=== PATIENT | male | born 2000 | race Two or more races ===

== ENCOUNTER 2024-10-14 10:46 | Emergency (ER) | payer SELFPAY ==
[2024-10-14 10:50] VITALS: BP 135/96; PULSE 102; TEMP 37; O2SAT 98; BMI 25.1
--- NOTE | 2024-10-14 11:05 | CT_ITS ---
The [address] [address] Patient Name: OLYA AGUILERA MRN: [id number] date: 2000 Sex: M Assigned Patient Location: ER Current Patient Location: Accession/Order Number: [id number] Exam Date: 10/14/2024 11:20 Report Date: 10/14/2024 12:06 At the request of: IFEOMA FERRO Procedure: CT abdomen pelvis wo con EXAM: CT abdomen pelvis wo con INDICATION: Hematuria, bilateral back pain. COMPARISON: None. TECHNIQUE: Multiple contiguous axial CT images of the abdomen and pelvis were obtained without the use of intravenous contrast. Sagittal and coronal reconstructions were performed. Dose reduction techniques were achieved by using: automated exposure control and/or adjustment of mA and /or kV according to patient size and/or use of iterative reconstruction technique. FINDINGS: Evaluation of visceral organs limited by noncontrast technique. LOWER CHEST: No significant abnormality. ABDOMEN AND PELVIS: LIVER: Unremarkable. BILIARY SYSTEM: Normal gallbladder. No biliary ductal dilatation. PANCREAS: Unremarkable. SPLEEN: Unremarkable. ADRENAL GLANDS: Normal. URINARY SYSTEM: Punctate nonobstructing 1 to 2 mm right renal stone. Unremarkable left kidney. No hydronephrosis or urolithiasis. Mild circumferential bladder wall thickening which is underdistended. REPRODUCTIVE: Unremarkable. GASTROINTESTINAL TRACT: Normal caliber bowel. No bowel wall thickening or inflammation. Moderate to large colorectal fecal burden. Normal appendix. VESSELS: Nonaneurysmal abdominal aorta. LYMPH NODES: No adenopathy. PERITONEUM: No ascites or pneumoperitoneum. MUSCULOSKELETAL: SOFT TISSUES: Unremarkable soft tissues. BONES: No acute osseous abnormality or suspicious osseous lesion. NUÑEZ: (series:image) CT/CT abdomen pelvis wo con IMPRESSION: 1. Mild circumferential wall thickening of the bladder which may be due to underdistention or cystitis. No other acute process identified. 2. Punctate right nephrolithiasis. Electronically authenticated by: MONICA CORONA Date: 10/14/2024 12:06
--- NOTE | 2024-10-14 11:05 | ED.GENADUL1 ---
HPI HPI - General Adult General Chief complaint: Upper Respiratory Infection Stated complaint: SINUSE ISSUES AND SOME BACK PAIN Time Seen by Provider: 10/14/24 10:48 Source: patient and friend Mode of arrival: walk-in Limitations: no limitations History of Present Illness HPI narrative: 24-year-old male presents to the emergency department for 2 issues. First he has had some upper respiratory infection symptoms for about 2 weeks. He finished a course of Keflex but still has a sore throat and some congestion. Second he was found to have hematuria at the urgent care center where they prescribed him the Keflex and he has had some bilateral lower back pain. No injury no history of kidney stones. Related Data Home Medications ?Medication ?Instructions ?Recorded ?Confirmed No Known Home Medications 10/14/24 10/14/24 Allergies Allergy/AdvReac Type Severity Reaction Status Date / Time No Known Drug Allergies Allergy Verified 10/14/24 10:54 Opioid HPI Opioid Management Most Recent Opioid Data: Last Pain Scale 6 10/14/24 11:01 10/14/24 Review of Systems ROS Narrative A ten point review of systems is negative except as noted above. PFSH PFSH Social History Little interest or pleasure in doing things: not at all Feeling down, depressed, or hopeless: not at all Exam Narrative Exam Narrative: Nurses note and vital signs reviewed and patient is not hypoxic. General: The patient appears well and in no apparent distress. Patient is resting comfortably on cart. Skin: Warm, dry, no pallor noted. There is no rash noted. Head: Normocephalic, atraumatic Eye: Normal conjunctiva, no drainage Ears, Nose, Mouth, and Throat: oral mucosa is moist. Nares patent. Uvula midline. No exudate. Cardiovascular: Regular Rate and Rhythm Respiratory: Patient is in no distress, no accessory muscle use, lungs are clear to auscultation, no wheezing, rales or rhonchi Back: non-tender, no CVA tenderness bilaterally to percussion. GI: Soft and nontender Musculoskeletal: The patient has no evidence of calf tenderness, no pitting edema, symmetrical pulses noted bilaterally Neurological: A&O, normal speech Psychiatric: Cooperative Constitutional Vital Signs, click to edit/add: Last Vital Signs Temp 98.6 F 10/14/24 10:50 Pulse 102 H 10/14/24 10:50 Resp 18 10/14/24 10:50 BP 135/96 H 10/14/24 10:50 Pulse Ox 98 10/14/24 10:50 O2 Del Method Room Air 10/14/24 10:50 Course Vital Signs Vital signs: Vital Signs Temperature 98.6 F 10/14/24 10:50 Pulse Rate 102 H 10/14/24 10:50 Respiratory Rate 18 10/14/24 10:50 Blood Pressure 135/96 H 10/14/24 10:50 Pulse Oximetry 98 10/14/24 10:50 Oxygen Delivery Method Room Air 10/14/24 10:50 Temperature 98.6 F 10/14/24 10:50 Pulse Rate 102 H 10/14/24 10:50 Respiratory Rate 18 10/14/24 10:50 Blood Pressure 135/96 H 10/14/24 10:50 Pulse Oximetry 98 10/14/24 10:50 Oxygen Delivery Method Room Air 10/14/24 10:50 Medical Decision Making MDM Narrative Medical decision making narrative: Strep test is positive. WBC is quite elevated, cause uncertain. He has not had any exogenous steroids. He has no evidence of peritonsillar abscess or retropharyngeal abscess. All other testing is negative. He pays for prescriptions [id number]-[id number] and is prescribed clindamycin, he has recently finished Keflex. There is no evidence of hematuria and other than a punctate stone no abnormalities on his CT scan. Treatment diagnosis and follow-up were discussed thoroughly. Differential Diagnosis Differential Diagnosis: UTI, hematuria, kidney stone, strep throat, COVID, influenza Lab Data Lab results reviewed: Yes I reviewed the patient's lab results Labs: Lab Results 10/14/24 Range/Units 10:56 WBC 26.9 H (4.0-11.0) 10^3/uL RBC 4.85 (4.70-6.10) 10^6/uL Hgb 14.9 (14.0-18.0) g/dL Hct 44.3 (42.0-54.0) % MCV 91.3 (80.0-94.0) fL MCH 30.7 (25.9-34.0) pg MCHC 33.6 (29.9-35.2) g/dL RDW 13.0 (11.0-15.0) % Plt Count 274 (150-450) 10^3/uL MPV 9.6 (9.5-13.5) fL Seg Neuts % (Manual) 83.0 H (43.0-75.0) Band Neutrophils % 3.0 (0-5) % Lymphocytes % (Manual) 6.0 L (20.5-60.0) % Atypical Lymphs % (Man) 2.0 % Monocytes % (Manual) 6.0 (1.7-12.0) % Eosinophils % (Manual) 0.0 L (0.9-7.0) % Basophils % (Manual) 0.0 L (0.2-2.0) % Neutrophils # (Manual) 22.32 H (1.4-6.5) 10^3/uL Band Neutrophils # 0.8 H (0.0-0.3) 10^3/uL Lymphocytes # (Manual) 1.61 (1.20-3.80) 10^3/uL Abs Atypical Lymphs Man 0.53 Monocytes # (Manual) 1.61 H (0.30-0.80) 10^3/uL Eosinophils # (Manual) 0.00 (0.00-0.70) 10^3/uL Basophils # (Manual) 0.00 (0.00-0.10) 10^3/uL Sodium 138 (136-145) mmol/L Potassium 4.0 (3.5-5.1) mmol/L Chloride 99 (98-107) mmol/L Carbon Dioxide 31.3 (21.0-32.0) mmol/L Anion Gap 11.7 BUN 7.0 (7.0-18.0) mg/dL Creatinine 0.94 (0.70-1.30) mg/dL Est GFR ( Amer) >60 (>=60 mL/min/1.73m^2) Est GFR (Non-Af Amer) >60 (>=60 mL/min/1.73m^2) BUN/Creatinine Ratio 7.4 Glucose 125 H (74-106) mg/dL Calcium 8.7 (8.5-10.1) mg/dL Urine Color Yellow (YELLOW) Urine Clarity Clear (CLEAR) Urine pH 8.0 (5.0-9.0) Ur Specific [place] 1.015 (1.005-1.025) Urine Protein Negative (NEG/TRACE) mg/dL Urine Glucose (UA) Negative (NEGATIVE) mg/dL Urine Ketones Trace A (NEGATIVE) mg/dL Urine Occult Blood Negative (NEGATIVE) Urine Nitrite Negative (NEGATIVE) Urine Bilirubin Negative (NEGATIVE) Urine Urobilinogen 0.2 (0.2-1.0) EU/dL Ur Leukocyte Esterase Negative (NEGATIVE) Urine RBC None seen (0-2) #/HPF Urine WBC None seen (NONE SEEN) #/HPF Ur Squamous Epith Cells Few A (NONE/RARE) #/LPF Urine Bacteria None seen (NONE SEEN) #/HPF Urine Mucus Small A (NONE SEEN) Influenza Type A Ag Negative Influenza Type B Ag Negative SARS-CoV-2 Ag (CV2AG) Negative (NEGATIVE) Streptococcus Screen Positive A Imaging Data CT scan - abdomen: Radiologist's impression: ITS Impressions Abdomen/Pelvis CT 10/14/24 11:05 IMPRESSION: 1. Mild circumferential wall thickening of the bladder which may be due to underdistention or cystitis. No other acute process identified. 2. Punctate right nephrolithiasis. Electronically authenticated by: MONICA CORONA Date: 10/14/2024 12:06 Discharge Plan Discharge Chief Complaint: Upper Respiratory Infection Clinical Impression: Strep throat, Leukocytosis Patient Disposition: Home, Self-Care Time of Disposition Decision: 12:53 Condition: Good Prescriptions / Home Meds: No Action No Known Home Medications Print Language: Serbian Instructions: Strep Throat (ED), Leukocytosis (ED) Additional Instructions: Prescription for clindamycin was phoned in for you. Go to your pharmacy and pick it up and start it today. Referrals: Physician,Non-Staff, MD [Primary Care Provider] - 1 week
[2024-10-14 11:11] LABS: Bilirubin Urine NEGATIVE (NEGATIVE); Blood Urine NEGATIVE (NEGATIVE); Clarity Urine CLEAR (CLEAR); Color Urine YELLOW (YELLOW); Glucose Urine UA NEGATIVE (NEGATIVE); Ketones Urine TRACE mg/dL (NEGATIVE); Leukocyte Esterase Urine NEGATIVE (NEGATIVE); Nitrite Urine NEGATIVE (NEGATIVE); Protein Urine NEGATIVE (NEG/TRACE); Specific Gravity Urine 1.015 (1.005-1.025); Urobilinogen Urine 0.2 EU/dL (0.2-1.0)
[2024-10-14 11:26] LABS: Influenza Virus A Antigen Negative; Influenza Virus B Antigen Negative; Internal Control Within Normal Limits; SARS-CoV-2 Ag NEGATIVE (NEGATIVE)
[2024-10-14 11:34] LABS: Bacteria Urine NONE SEEN #/HPF (NONE SEEN); Hematocrit 44.3 % (42.0-54.0); Hemoglobin 14.9 g/dL (14.0-18.0); Mean Corpuscular HGB Conc 33.6 g/dL (29.9-35.2); Mean Corpuscular Hemoglobin 30.7 pg (25.9-34.0); Mean Corpuscular Volume 91.3 fL (80.0-94.0); Mean Platelet Volume 9.6 fL (9.5-13.5); Mucus Urine SMALL (NONE SEEN); Platelet Count 274 10^3/uL (150-450); RBC Urine NONE SEEN #/HPF (0-2); Red Blood Count 4.85 10^6/uL (4.70-6.10); Squamous Epithelial Cell Urine FEW #/LPF (NONE/RARE); WBC Urine NONE SEEN #/HPF (NONE SEEN); White Blood Count 26.9 10^3/uL (4.0-11.0)
[2024-10-14 11:37] LABS: Internal Control Within Normal Limits; Strep A Antigen Screen Positive
[2024-10-14 11:47] LABS: Atypical Lymphocytes Abs Man 0.53; Band Neutrophils Absolute 0.8 10^3/uL (0.0-0.3); Lymphocytes Absolute Manual 1.61 10^3/uL (1.20-3.80); Monocytes Absolute Manual 1.61 10^3/uL (0.30-0.80); Segmented Neut Absolute Manual 22.32 10^3/uL (1.4-6.5)
[2024-10-14 11:48] LABS: Anion Gap 11.7; BUN Creatinine Ratio 7.4; Calcium 8.7 mg/dL (8.5-10.1); Carbon Dioxide 31.3 mmol/L (21.0-32.0); Chloride 99 mmol/L (98-107); Estimated GFR (African America >60 (>=60 mL/min/1.73m^2); Estimated GFR (Non-African Ame >60 (>=60 mL/min/1.73m^2); Glucose 125 mg/dL (74-106); Sodium 138 mmol/L (136-145)
== END 2024-10-14 13:13 | disposition home or self-care (01) ==
PROVIDERS: Emergency Provider Emergency Medicine
DX: J02.0 Streptococcal pharyngitis (principal); D72.829 Elevated white blood cell count, unspecified; M54.50 Low back pain, unspecified
CPT/HCPCS: 36415; 74176; 80048; 81001; 85007; 85027; 87804; 87811; 87880; 99284